=== PATIENT | female | born 1975 | race Caucasian/White ===

== ENCOUNTER 2021-01-08 13:29 | Outpatient (CLI) | payer BC | END 2021-01-08 13:30 | disposition home or self-care (01) | LOC: CSHMAMMO 13:29 | PROVIDERS: ATTEND Family Medicine | DX: N63.20 Unspecified lump in the left breast, unspecified quadrant (principal) | CPT/HCPCS: G0279 ==

== ENCOUNTER 2021-10-01 13:19 | Outpatient (CLI) | payer BC | END 2021-10-01 13:20 | disposition home or self-care (01) | LOC: CSHMAMMO 13:19 | PROVIDERS: ATTEND Obstetrics & Gynecology | DX: N64.4 Mastodynia (principal) | CPT/HCPCS: G0279 ==